=== PATIENT | male | born 1970 | race Caucasian/White ===

== ENCOUNTER 2021-06-26 11:02 | Emergency (ER) | payer OTHER ==
[~2021-06-26] VITALS: Ht 177.8 cm; Wt 87.1 kg
[2021-06-26 11:48] LABS: BASOPHIL 0.8 % (0-2); EOSINOPHIL 5.8 % (0-5); HCT 42.9 % (42.0-52.0); HGB 14.9 g/dl (13.2-18.0); LYMPHOCYTE 28.1 % (15-48); MCH 29.4 pg (25.0-31.0); MCHC 34.7 g/dL (32.0-36.0); MCV 84.8 fL (78.0-100.0); MONOCYTE 8.5 % (0-12); MPV 10.5 fL (6.0-9.5); NEUTROPHIL 56.4 % (41-80); NRBC 0; PLT 233 K/uL (150-400); RBC 5.06 M/uL (4.70-6.00); RDW 12.2 % (11.5-14.0); WBC 7.1 K/uL (4.0-10.5)
[2021-06-26 11:53] LABS: BILIRUBIN NEGATIVE (NEGATIVE); BLOOD NEGATIVE Ery/uL (NEGATIVE); CLARITY CLEAR (CLEAR); COLOR YELLOW (YELLOW); GLUCOSE (U) NORMAL (NORMAL); LEUKOCYTES NEGATIVE Leu/uL (NEGATIVE); NITRITE NEGATIVE (NEGATIVE); PROTEIN NEGATIVE (NEGATIVE); SPECIFIC GRAVITY 1.025 (1.001-1.030); pH 6.5 (5.0-9.0)
[2021-06-26 11:58] LABS: BUN/CREAT RATIO (CALC) 19.1 RATIO; CREATININE 0.94 mg/dL (0.67-1.17)
[2021-06-26] MEDS ORDERED: NORVASC5 MG PO (12:21)
== END 2021-06-26 12:50 | disposition home or self-care (01) ==
LOC: FER 11:02
PROVIDERS: Emergency Medicine
DX: I10 Essential (primary) hypertension (principal); F17.210 Nicotine dependence, cigarettes, uncomplicated
CPT/HCPCS: 36415; 71046; 80048; 81003; 85025; 93005